=== PATIENT | male | born 1950 | race Caucasian/White ===

== ENCOUNTER 2022-09-01 23:48 | Inpatient (IN) | payer MEDICARE, BC ==
[~2022-09-01] VITALS: Ht 182.9 cm; Wt 115.4 kg
[~2022-09-01 23:48] MED LIST: ACIPHEX20 MG PO; ASPIRIN 81M81 MG/TA2 PO; CALCIUM 600MG+D1 TAB PO; CLARITIN 1010 MG/TAB PO; COZAAR 50MG50 MG/TAB PO; DOXYCYCLINE HY100 MG PO; EUTHYROX125 MCG PO; HCTZ 25MG TAB25 MG PO; LUTEIN20 M1 PO; MASON NATURAL2000 IU PO; PRAVACHOL 40MG40 MG PO; PROTONIX 40MG T40 MG PO; VITAMINC1000TA PO
[2022-09-02 00:48] LABS: BASO # 0.1 K/mm3 (0.0-0.2); BASO % 0.9 % (0.0-2.0); EOS # 0.7 K/mm3 (0.0-0.7); EOS % 5.6 % (0.0-4.0); GRAN # 8.7 K/mm3 (1.4-6.5); GRAN % 71.2 % (42.2-75.2); HEMOGLOBIN 10.9 g/dl (13.5-18.0); LYMPH # 1.4 K/mm3 (1.2-3.4); LYMPH % 11.4 % (20.0-51.0); MEAN CELL VOLUME 94 fl (80.0-100.0); MEAN CORPUSCULAR HEMOGLOBIN 31 pg (27-31); MEAN CORPUSCULAR HGB CONC 33 g/dl (33.0-37.0); MEAN PLATELET VOLUME 8.9 fl (7.4-10.4); MONO # 1.3 K/mm3 (0.1-0.6); MONO % 10.6 % (1.7-9.3); PLATELET COUNT 505 K/mm3 (130-400); RED BLOOD COUNT 3.57 M/mm3 (4.20-5.60); REDCELL DISTRIBUTION WIDTH-CV 14.3 % (11.5-14.5)
[2022-09-02 00:57] LABS: ALBUMIN 3.3 gm/dL (3.4-4.8); BILIRUBIN,TOTAL 0.4 mg/dL (0.2-1.2); CALCIUM 8.4 mg/dL (8.4-10.2); CREATININE, serum 0.79 mg/dL (0.72-1.25); POTASSIUM 3.5 mmol/L (3.5-4.5); TOTAL PROTEIN 7.3 gm/dL (6.2-8.1)
[2022-09-02 01:00] LABS: HEMATOCRIT 33.5 % (42.0-52.0)
[2022-09-02 01:07] LABS: TROPONIN-I 0.036 ng/mL (0.00-0.033)
[2022-09-02] MEDS ORDERED: COZAAR100 MG PO (06:30)
[2022-09-02] MEDS ORDERED: HCTZ 25MG TAB25 MG PO (06:30)
[2022-09-02] MEDS ORDERED: PROAIR HFA0.09 MG/AC IH (11:31)
[2022-09-02 16:07] VITALS: BP 139/73; PULSE 77; TEMP 97.8
[2022-09-02 16:52] VITALS: PULSE 77; TEMP 97.8
--- NOTE | 2022-09-02 18:00 | NUR ---
Patient admitted to room 307 from ED. Report recieved from ALBERT Blanco. Pharmacy, Allergies, and medications reviewed. Admission paperwork completed. Patient currenlty requring 3L of O2 via nasal cannula. VSS. Patient denies any pain, discomfort, SOA, or further needs at this time. Call light in reach.
[2022-09-02 19:42] VITALS: BP 132/70; PULSE 79; TEMP 97.8
[2022-09-02 20:25] VITALS: PULSE 79; TEMP 97.8
--- NOTE | 2022-09-02 21:27 | NUR ---
PT TOLERATED TX WELL. NO COMPLICATIONS. NO CHANGE IN BREATH SOUNDS AFTER TREATMENT. CHECKED X3 PRIOR TO TX AT 2054 AND PT WAS UNAVAILABLE EACH TIME. NO VOICED CONCERNS. CALL LIGHT WITHIN REACH
[2022-09-02 23:49] VITALS: BP 129/75; PULSE 96; TEMP 98.5
[2022-09-03] VITALS (11 sets, daily range): BP systolic 114–160; BP diastolic 62–88; PULSE 75–104; TEMP 97.9–98.5
[2022-09-03 06:52] LABS: HEMOGLOBIN 10.1 g/dl (13.5-18.0); MEAN CELL VOLUME 95 fl (80.0-100.0); MEAN CORPUSCULAR HEMOGLOBIN 30 pg (27-31); MEAN CORPUSCULAR HGB CONC 32 g/dl (33.0-37.0); PLATELET COUNT 475 K/mm3 (130-400); RED BLOOD COUNT 3.36 M/mm3 (4.20-5.60); REDCELL DISTRIBUTION WIDTH-CV 14.1 % (11.5-14.5)
[2022-09-03 07:01] LABS: HEMATOCRIT 31.8 % (42.0-52.0)
[2022-09-03 07:08] LABS: CALCIUM 8.5 mg/dL (8.4-10.2); CREATININE, serum 0.84 mg/dL (0.72-1.25); MAGNESIUM 2.2 mg/dL (1.6-2.6); PHOSPHOROUS 3.2 mg/dL (2.3-4.7); POTASSIUM 3.8 mmol/L (3.5-4.5)
[2022-09-03 08:19] LABS: BAND 15 % (0-10); LYMPHOCYTE 5 % (20.0-51.0); NEUTROPHILS 79 % (42.0-75.2); PLATELET ESTIMATE INCREASED (NORMAL)
--- NOTE | 2022-09-03 10:18 | NUR ---
[facility]anet: Buddhism Situation: board writer stopped by room on rounds Background: Pt was resting and content Assessment: pt has no needs right now. Recommendation: board writer will follow up as needed
--- NOTE | 2022-09-03 10:30 | NUR ---
SHIFT ASSESSMENT COMPLETED AND MORNING MEDICATIONS ADMINISTERED PER ORDER. PATIENT IS ALERT AND ORIENTED X4. DENIES PAIN. DENIES NEEDS AT THIS TIME. CALL LIGHT WITHIN REACH.
--- NOTE | 2022-09-03 14:06 | NUR ---
SW met with patient to complete intake. Patient states that he lives with his Tiffanie Lyons [phone], DPOA/Hc is daughter Genesis Mahoney. Patient states that he does not utilize DME, is independent with ADL's and does not utilize HH services at this time. PCP is Zay, and pharmacy is [facility]. Patient plans to return home upon DC. SW will continue to follow. DC plan: home
--- NOTE | 2022-09-03 15:22 | NUR ---
VOICEMAIL LEFT WITH CALLBACK NUMBER WITH DR. MELGAR, INFECTIOUS DISEASE.
--- NOTE | 2022-09-03 16:17 | NUR ---
PATIENT STATES HE CANNOT TAKE ASPIRIN DUE TO PREVIOUS BLEED, STATES HE WAS TOLD BY HIS PHYSICIAN TO NO LONGER TAKE IT. DR. CROOKS UPDATED, NEW ORDER RECEIVED TO D/C ASPIRIN.
[2022-09-04] VITALS (12 sets, daily range): BP systolic 126–161; BP diastolic 62–86; PULSE 66–98; TEMP 97.4–98.2
--- NOTE | 2022-09-04 05:00 | NUR ---
ASSESSMENT COMPLETE FOR STORE WORKER. PT STATED HE HAD BEEN TAKING HIS OWN MEDS FROM HOME WELL MEDS GIVEN BY STAFF. I EXPLAINED TO PT THE IMPORTANCE OF NOT TAKING ANYTHING NOT GIVEN BY STAFF. PT STATED HE WAS JUST TAKING HIS BLOOD PRESSURE MEDICATION BECAUSE HE WAS CONCERNED ABOUT HIS B/P GETTING HIGHER AND HIGHER. HOSPITALIST CALLED. PT'S B/P MEDS RESTARTED. PT EXPRESSED NO ADDITIONAL NEEDS AT THIS TIME. CALL LIGHT WITHIN REACH.
[2022-09-04 07:02] LABS: MEAN CELL VOLUME 96 fl (80.0-100.0); MEAN CORPUSCULAR HEMOGLOBIN 30 pg (27-31); MEAN CORPUSCULAR HGB CONC 32 g/dl (33.0-37.0); MEAN PLATELET VOLUME 9.2 fl (7.4-10.4); PLATELET COUNT 529 K/mm3 (130-400); RED BLOOD COUNT 3.64 M/mm3 (4.20-5.60); REDCELL DISTRIBUTION WIDTH-CV 14.3 % (11.5-14.5)
[2022-09-04 07:08] LABS: ALBUMIN 3.2 gm/dL (3.4-4.8); CALCIUM 8.8 mg/dL (8.4-10.2); CREATININE, serum 0.88 mg/dL (0.72-1.25); MAGNESIUM 2.3 mg/dL (1.6-2.6); PHOSPHOROUS 3.2 mg/dL (2.3-4.7); POTASSIUM 3.9 mmol/L (3.5-4.5)
[2022-09-04 07:19] LABS: HEMATOCRIT 34.8 % (42.0-52.0)
[2022-09-04 09:48] LABS: HYPOCHROMIA 2+; LYMPHOCYTE 4 % (20.0-51.0); PLATELET ESTIMATE INCREASED (NORMAL)
[2022-09-04 09:49] LABS: NEUTROPHILS 84 % (42.0-75.2)
[2022-09-04 09:50] LABS: BAND 9 % (0-10)
--- NOTE | 2022-09-04 10:33 | NUR ---
PATIENT'S IV NOTED TO INFILTRATE WHILE ADMINISTERING IV LASIX. PATIENT DENEIS PAIN TO THE AREA. IV REMOVED. ATTEMPTED NEW IV INSERTION X1, UNSUCCESFUL. ADDITIONAL RN IN ROOM AT THIS TIME ATTEMPTING NEW IV INSERTION. WILL START VANCOMYCIN ONCE IV IS PLACED.
--- NOTE | 2022-09-04 17:15 | NUR ---
PATIENT UP IN BED AT THIS TIME WITH FAMILY AT BEDSIDE. DENIES ANY PAIN OR NEEDS AT THIS TIME. ON IV VANCOMYCIN, TOLERATING WELL. CALL LIGHT WITHIN REACH.
[2022-09-05] VITALS (17 sets, daily range): BP systolic 121–159; BP diastolic 77–95; PULSE 66–108; TEMP 97.6–98.7
[2022-09-05 06:46] LABS: HEMOGLOBIN 11.3 g/dl (13.5-18.0); MEAN CELL VOLUME 96 fl (80.0-100.0); MEAN CORPUSCULAR HEMOGLOBIN 30 pg (27-31); MEAN CORPUSCULAR HGB CONC 31 g/dl (33.0-37.0); MEAN PLATELET VOLUME 9.3 fl (7.4-10.4); PLATELET COUNT 569 K/mm3 (130-400); RED BLOOD COUNT 3.82 M/mm3 (4.20-5.60); REDCELL DISTRIBUTION WIDTH-CV 14.5 % (11.5-14.5)
[2022-09-05 06:48] LABS: HEMATOCRIT 36.5 % (42.0-52.0)
[2022-09-05 07:20] LABS: ALBUMIN 3.3 gm/dL (3.4-4.8); CALCIUM 8.8 mg/dL (8.4-10.2); CREATININE, serum 0.91 mg/dL (0.72-1.25); MAGNESIUM 2.2 mg/dL (1.6-2.6); POTASSIUM 4.1 mmol/L (3.5-4.5)
[2022-09-05 07:28] LABS: BAND 1 % (0-10); HYPOCHROMIA 2+; LYMPHOCYTE 4 % (20.0-51.0); NEUTROPHILS 93 % (42.0-75.2); PLATELET ESTIMATE INCREASED (NORMAL); TARGET CELLS 1+
--- NOTE | 2022-09-05 08:00 | NUR ---
Patient sitting up in bed, A&Ox4. VSS no complaints SOB. IV CDI, fluids infusing. Denies pain and discomfort. NPO for procedures. Call light within reach
--- NOTE | 2022-09-05 15:24 | NUR ---
PT's eval states that the patient is walking 600 ft. PT is recommending home.
--- NOTE | 2022-09-05 19:41 | NUR ---
PATIENT LAYING IN BED WATCHING TELEVISION AT THIS TIME. PATIENT DENIES PAIN, NEEDS OR CONCERNS. PATIENT HAS CALL LIGHT IN HAND AND IS ENCOURAGED TO CALL WITH NEEDS OR CONCERNS; PATIENT STATES UNDERSTANDING.
[2022-09-06] VITALS (11 sets, daily range): BP systolic 105–123; BP diastolic 57–75; PULSE 52–91; TEMP 97.4–98.4
--- NOTE | 2022-09-06 05:57 | NUR ---
PATIENT STATES AT MED PASS THAT HE IS FEELING WELL AND IS VERY ENCOURAGED BY HIS IMPROVED VITAL SIGNS. PATIENT CONTINUES TO HAVE CALL LIGHT IN HAND AND STATES UNDERSTANDING IN REGARDS TO CALL WITH NEEDS OR CONCERNS.
[2022-09-06 06:43] LABS: BASO % 0.1 % (0.0-2.0); GRAN # 8.5 K/mm3 (1.4-6.5); GRAN % 72.1 % (42.2-75.2); HEMOGLOBIN 10.6 g/dl (13.5-18.0); LYMPH % 17.2 % (20.0-51.0); MEAN CELL VOLUME 92 fl (80.0-100.0); MEAN CORPUSCULAR HEMOGLOBIN 30 pg (27-31); MEAN CORPUSCULAR HGB CONC 32 g/dl (33.0-37.0); MEAN PLATELET VOLUME 9.1 fl (7.4-10.4); MONO # 1.2 K/mm3 (0.1-0.6); MONO % 9.8 % (1.7-9.3); PLATELET COUNT 501 K/mm3 (130-400); RED BLOOD COUNT 3.56 M/mm3 (4.20-5.60); REDCELL DISTRIBUTION WIDTH-CV 14.2 % (11.5-14.5)
[2022-09-06 06:53] LABS: HEMATOCRIT 32.8 % (42.0-52.0)
[2022-09-06 07:11] LABS: ALBUMIN 2.9 gm/dL (3.4-4.8); CALCIUM 8.7 mg/dL (8.4-10.2); CREATININE, serum 0.88 mg/dL (0.72-1.25); MAGNESIUM 2.4 mg/dL (1.6-2.6); PHOSPHOROUS 4.3 mg/dL (2.3-4.7); POTASSIUM 3.9 mmol/L (3.5-4.5)
--- NOTE | 2022-09-06 23:34 | NUR ---
SHIFT NURSING ASSESSMENT COMPLETED. THE PATIENT WAS ALERT AND ORIENTED. THE PATIENT DENIED PAIN. THE PLAN OF CARE WAS DISCUSSED. EVENING MEDICATIONS PROVIDED. JAMES REINA NOTIFIED OF PTS BP OF 116/75 AND HR OF 52. LOSARTAN 50 MG AND TOPROL XL 25 MG HELD AT THIS TIME. THE PATIENT IS UP AD RICHARD WITH A STEADY GAIT. CALL LIGHT WITHIN REACH. WILL MONITOR.
[2022-09-07] VITALS (22 sets, daily range): BP systolic 111–157; BP diastolic 52–92; PULSE 51–67; TEMP 97.5–98.2
--- NOTE | 2022-09-07 06:46 | NUR ---
THE PATIENT STATED HE WAS FEELING CHEST TIGHTNESS. NO OTHER SYMPTOMS NOTED. DR. GILL NOTIFIED AND NEW ORDERS WERE RECEIVED FOR AN EKG AND TROPONIN. WILL MONITOR.
[2022-09-07 07:03] LABS: BASO % 0.1 % (0.0-2.0); EOS # 0.1 K/mm3 (0.0-0.7); EOS % 0.4 % (0.0-4.0); GRAN # 7.8 K/mm3 (1.4-6.5); GRAN % 57.2 % (42.2-75.2); HEMOGLOBIN 11.7 g/dl (13.5-18.0); LYMPH # 4.4 K/mm3 (1.2-3.4); LYMPH % 32.1 % (20.0-51.0); MEAN CELL VOLUME 90 fl (80.0-100.0); MEAN CORPUSCULAR HEMOGLOBIN 30 pg (27-31); MEAN CORPUSCULAR HGB CONC 33 g/dl (33.0-37.0); MEAN PLATELET VOLUME 9.2 fl (7.4-10.4); MONO # 1.3 K/mm3 (0.1-0.6); MONO % 9.5 % (1.7-9.3); PLATELET COUNT 529 K/mm3 (130-400); RED BLOOD COUNT 3.91 M/mm3 (4.20-5.60); REDCELL DISTRIBUTION WIDTH-CV 13.8 % (11.5-14.5)
[2022-09-07 07:08] LABS: HEMATOCRIT 35.2 % (42.0-52.0)
[2022-09-07 07:29] LABS: CALCIUM 8.8 mg/dL (8.4-10.2); MAGNESIUM 2.4 mg/dL (1.6-2.6); PHOSPHOROUS 4.4 mg/dL (2.3-4.7); POTASSIUM 3.4 mmol/L (3.5-4.5)
--- NOTE | 2022-09-07 09:01 | NUR ---
Assessment complete. A/O x4. Tele intact. INT to without s/s complications. Reports SOA with exertion/walking. Coughing up thick yellow sputum. MCOT in place for 30 day telemetry monitor that was placed after discharge from last admission. Reports overall feeling stronger today and hoping he'll be discharged.
--- NOTE | 2022-09-07 10:48 | NUR ---
SEE MERGE FOR ALL MEDICATION ADMINISTRATION TIMES/DOSAGES AND INTRA/POST PROCEDURE SEDATION ASSESSMENTS.
--- NOTE | 2022-09-07 11:10 | NUR ---
Report rec'd from Savannah in the laboratory assistant.
--- NOTE | 2022-09-07 11:25 | NUR ---
Pt returns to room. A/O x4. Denies pain. VS obtained- see flowsheet. Band to right wrist at 15ml and placed at 1104. Instructed patient on bedrest x1 hour and delation process beginning two hours after pressure initally applied. Pt verbalizes understanding.
--- NOTE | 2022-09-07 15:24 | NUR ---
Followed/following cardiac cath post procedure checks protocol- see process intervention for details. Radial band delated per protocol and removed. Bandaid to right wrist. No bleeding noted throughout. Pt denies pain. Resting in bed.
--- NOTE | 2022-09-07 15:31 | NUR ---
Patient scheduled telehealth visit with Dr. Matthews Infectious [facility]. Patient consents to visit. Equipment set up and audio and video connection established. Visit conducted by MD. No technical concerns or issues. MD to provide visit note.
--- NOTE | 2022-09-07 18:30 | NUR ---
Pt resting in bed. Radial site bandaid CDI. Denies pain or needs. at bedside.
--- NOTE | 2022-09-07 19:16 | NUR ---
PATIENT LAYING IN BED WATCHING TELEVISION. PATIENT DENIES NEEDS OR CONCERNS. PATIENT HAS CALL LIGHT IN LEFT HAND AND IS ENCOURAGED TO CALL WITH NEEDS OR CONCERNS. PATIENT STATES UNDERSTANDING.
[2022-09-08 00:16] VITALS: BP 126/78; PULSE 50; TEMP 97.7
[2022-09-08 04:10] VITALS: BP 138/79; PULSE 57; TEMP 97.9
[2022-09-08 07:11] LABS: BASO % 0.1 % (0.0-2.0); EOS % 0.2 % (0.0-4.0); GRAN # 8.8 K/mm3 (1.4-6.5); GRAN % 62.4 % (42.2-75.2); HEMATOCRIT 37.7 % (42.0-52.0); HEMOGLOBIN 12.2 g/dl (13.5-18.0); LYMPH % 28.6 % (20.0-51.0); MEAN CELL VOLUME 92 fl (80.0-100.0); MEAN CORPUSCULAR HEMOGLOBIN 30 pg (27-31); MEAN CORPUSCULAR HGB CONC 32 g/dl (33.0-37.0); MEAN PLATELET VOLUME 9.3 fl (7.4-10.4); MONO # 1.1 K/mm3 (0.1-0.6); PLATELET COUNT 555 K/mm3 (130-400); REDCELL DISTRIBUTION WIDTH-CV 13.7 % (11.5-14.5)
[2022-09-08 07:28] VITALS: BP 140/83; PULSE 54; TEMP 98.1
[2022-09-08 07:33] LABS: CALCIUM 9.1 mg/dL (8.4-10.2); CREATININE, serum 0.89 mg/dL (0.72-1.25); POTASSIUM 3.9 mmol/L (3.5-4.5)
[2022-09-08 09:00] VITALS: PULSE 54; TEMP 98.1
[2022-09-08 11:03] VITALS: BP 144/76; PULSE 58; TEMP 98
[2022-09-08 13:00] VITALS: PULSE 58; TEMP 98
[2022-09-08] MEDS ORDERED: LIPITOR 80MG80 MG PO (15:18)
[2022-09-08] MEDS ORDERED: TOPROL XL 25MG25 MG PO (15:18)
[2022-09-08] MEDS ORDERED: IMDUR 60MG60 MG/TAB PO (15:18)
[2022-09-08] MEDS ORDERED: COZAAR 50MG50 MG/TAB PO (15:18)
[2022-09-08] MEDS ORDERED: ASPIRIN 81M81 MG/TA2 PO (15:18)
[2022-09-08] MEDS ORDERED: HCTZ 25MG TAB25 MG PO (15:19)
[2022-09-08] MEDS ORDERED: LASIX 40MG TABL40 MG PO (15:19)
[2022-09-08] MEDS ORDERED: AMOXICILLIN 8751 TAB PO (15:20)
--- NOTE | 2022-09-08 16:27 | NUR ---
Patient scheduled telehealth visit with Dr. Matthews Infectious Disease. Pt consents to visit. Equipment set up audio and video connections established. Visit conducted by MD. No technical concerns or issues MD to provide visit note.
== END 2022-09-08 16:31 | disposition home or self-care (01) | DRG 871 ==
LOC: COL.ER 23:48 → MEDICAL 09-02 15:10
PROVIDERS: Emergency Medicine; Internal Medicine; Physician Assistant; ADMIT Student in an Organized Health Care Education/Training Program
PROC: 4A023N7 Measurement of Cardiac Sampling and Pressure, Left Heart, Percutaneous Approach (ICD-10-PCS; principal; 2022-09-07)
PROC: B2111ZZ Fluoroscopy of Multiple Coronary Arteries using Low Osmolar Contrast (ICD-10-PCS; 2022-09-07)
DX: A40.8 Other streptococcal sepsis (principal); I21.4 Non-ST elevation (NSTEMI) myocardial infarction; I50.33 Acute on chronic diastolic (congestive) heart failure; I21.A1 Myocardial infarction type 2; J18.9 Pneumonia, unspecified organism; J96.01 Acute respiratory failure with hypoxia; E87.20 Acidosis, unspecified; I11.0 Hypertensive heart disease with heart failure; R65.10 Systemic inflammatory response syndrome (SIRS) of non-infectious origin without acute organ dysfunction; K21.9 Gastro-esophageal reflux disease without esophagitis; E03.9 Hypothyroidism, unspecified; Z20.822 Contact with and (suspected) exposure to COVID-19; D72.829 Elevated white blood cell count, unspecified; E78.5 Hyperlipidemia, unspecified; I27.20 Pulmonary hypertension, unspecified; D64.9 Anemia, unspecified; D75.839 Thrombocytosis, unspecified; E87.8 Other disorders of electrolyte and fluid balance, not elsewhere classified; R73.9 Hyperglycemia, unspecified; I08.0 Rheumatic disorders of both mitral and aortic valves; K46.9 Unspecified abdominal hernia without obstruction or gangrene; I25.10 Atherosclerotic heart disease of native coronary artery without angina pectoris; K29.70 Gastritis, unspecified, without bleeding; M19.90 Unspecified osteoarthritis, unspecified site; N40.0 Benign prostatic hyperplasia without lower urinary tract symptoms; B95.0 Streptococcus, group A, as the cause of diseases classified elsewhere; Z79.890 Hormone replacement therapy; Z86.16 Personal history of COVID-19; Z23 Encounter for immunization
CPT/HCPCS: A9500; C1769; J0456; J0696; J1644; J1940; J2270; J2704; J2785; J2920; J2930; J3010; J3370; J7050; Q9967